=== PATIENT | female | born 1990 | race Caucasian/White ===

== ENCOUNTER → 2017-04-23 10:33 | Outpatient (CLI) | payer MEDICAID ==
[2014-11-29 05:28] VITALS: BMI 26.2
[~2017-04-23 10:33] MED LIST: ALEVE220 MG PO; HYDROCODONE-APA1 TAB PO; IBUPROFEN800 MG PO; PERCOCET 10/3251 TA1 PO; XULANE
== END | disposition home or self-care (01) ==
LOC: D.NM 10:33
DX: R10.9 Unspecified abdominal pain (principal)

== ENCOUNTER 2017-05-22 05:12 | Day surgery (SDC) | payer MEDICAID ==
[~2017-05-22] VITALS: Ht 167.6 cm; Wt 80.3 kg
--- NOTE | ~2017-05-22 | OP ---
PATIENT NAME: GWENDOLYN PAGAN MEDICAL RECORD: [id number] :89 LOCATION:D.OPS ADMISSION DATE: SURGEON: SHAHANA HERNANDEZ MD DATE OF OPERATION: 05/22/2017 PREOPERATIVE DIAGNOSIS: Biliary dyskinesia. POSTOPERATIVE DIAGNOSIS: Biliary dyskinesia. PROCEDURE: Single incision laparoscopic cholecystectomy. SURGEON: Shahana Hernandez MD REPORT OF PROCEDURE: The patient's abdomen was prepped and draped in sterile fashion. A cutdown was made through the base of the umbilicus. Electrocautery was used to dissect through the subcutaneous tissues and fascia until we entered the abdominal cavity. Once inside an SILS port was inserted and the abdomen was insufflated. The gallbladder was grasped and elevated. There was a little bit of fatty adhesions present next to the gallbladder on the liver and this was teased down carefully with blunt dissection. The gallbladder had no signs of any acute inflammatory changes. The cystic artery and cystic duct were dissected free and these were clipped proximally and distally and ligated in standard fashion. The gallbladder was taken off the liver bed using electrocautery and placed in the right upper quadrant. The right upper quadrant was irrigated out and care was taken to assure there is no sign of any active bleeding or bile leakage. At this point, the ports and insufflation were then removed and the gallbladder was taken out through the umbilicus. The umbilical fascia was then closed with interrupted 0 Vicryls times 4. The wound was then infused with total of 10 mL of 0.25% Marcaine plain and the skin incision was closed with running subcutaneous 5-0 Monocryl. COMPLICATIONS: None. CONDITION: Stable. ANESTHESIA: General endotracheal and local. BLOOD LOSS: Minimal. TRANSINT:[id number] Voice Confirmation ID: [id number] DOCUMENT ID: [id number] SHAHANA HERNANDEZ MD at 0841 CC: DELMA BARBA MD [id number] DICTATION DATE: 05/22/17905 [facility] MOLDER: 05/22/17 0942 [facility] 05/22/17 [id number] [place] [address]
[~2017-05-22 05:12] MED LIST changes: -ALEVE220 MG PO; -HYDROCODONE-APA1 TAB PO; -XULANE
[2017-05-22 06:11] LABS: HEMATOCRIT 34.4 % (36.0-48.0); HEMOGLOBIN 11.6 g/dL (12-16); MCH 29.6 pg (26.0-34.0); MCHC 33.7 g/dL (31.0-37.0); MCV 87.8 fL (80.0-100.0); MEAN PLATELET VOLUME 9.7 fL (7.4-10.4); RBC 3.92 10x6/uL (4.00-5.40); RDW 12.5 % (11.5-14.5); WBC 4.3 10x3/uL (4.8-10.8)
[2017-05-22] MEDS ORDERED: ALEVE220 MG PO (06:11)
[2017-05-22] MEDS ORDERED: XULANE (06:11)
[2017-05-22 06:14] LABS: CALC OSMOLALITY 281 mosm/kg (275-300); CALCIUM 8.3 mg/dL (8.5-10.1); CARBON DIOXIDE 25.3 mmol/L (21.0-32.0); CHLORIDE - SERUM 106 mmol/L (98-107); CREATININE - SERUM 0.9 mg/dL (0.6-1.3); GLUCOSE 85 mg/dL (74-106); POTASSIUM - SERUM 4.1 mmol/L (3.5-5.1); SODIUM 141 mmol/L (136-145); UREA NITROGEN 18 mg/dL (7-18); eGFR NON AFRICAN AMERICAN 81 mL/min (90-120)
[2017-05-22 06:21] LABS: PLATELET COUNT 244 10x3/uL (130-400)
[2017-05-22 06:27] LABS: HCG URINE NEGATIVE (NEGATIVE)
[2017-05-22 06:30] VITALS: BP 110/69; Ht 167.6 cm; Wt 80.3 kg
[2017-05-22 07:56] LABS: EOSINOPHILS 2 % (0-7); HYPOCHROMASIA OCC; LYMPHOCYTES 62 % (15-50); MONOCYTES 5 % (2-11); NEUTROPHILS 30 % (40-80); PLATELET ESTIMATE NORMAL; ROULEAUX OCC
[2017-05-22] MEDS ORDERED: HYDROCODONE-APA1 TAB PO (09:02)
== END 2017-05-22 10:45 | disposition home or self-care (01) ==
LOC: D.OPS 05:12 → D.PAN 11:30
PROVIDERS: Surgery
DX: K82.8 Other specified diseases of gallbladder (principal); Z01.812 Encounter for preprocedural laboratory examination

== ENCOUNTER → 2018-10-15 13:34 | Outpatient (CLI) | payer MEDICAID ==
[2017-05-22 06:30] VITALS: BMI 28.6
[~2018-10-15 13:34] MED LIST changes: +ALEVE220 MG PO; +HYDROCODONE-APA1 TAB PO; +XULANE
== END | disposition home or self-care (01) ==
LOC: D.US 13:34
PROVIDERS: ATTEND Family Medicine
DX: N63.10 Unspecified lump in the right breast, unspecified quadrant (principal)